=== PATIENT | female | born 1965 | race Caucasian/White ===

== ENCOUNTER → 2017-04-21 | Outpatient (CLI) | payer BC | LOC: MAMMO 14:12 | DX: Z12.31 Encounter for screening mammogram for malignant neoplasm of breast (principal) | CPT/HCPCS: G0202 ==

== ENCOUNTER → 2018-04-07 | Outpatient (CLI) | payer BC | LOC: RAD 07:23 | DX: M79.645 Pain in left finger(s) (principal); M79.642 Pain in left hand ==

== ENCOUNTER → 2018-04-19 | Outpatient (CLI) | payer BC | LOC: RAD 08:57 | DX: M17.0 Bilateral primary osteoarthritis of knee (principal) ==

== ENCOUNTER → 2018-04-27 | Outpatient (CLI) | payer BC | LOC: MAMMO 13:15 | DX: Z12.31 Encounter for screening mammogram for malignant neoplasm of breast (principal) ==

== ENCOUNTER 2018-10-30 17:55 | Emergency (ER) | payer BC ==
[~2018-10-30] VITALS: Ht 167.6 cm; Wt 89.5 kg
[2018-10-30 18:56] LABS: BASO # 0.1 (0.02-0.10); EOS # 0.3 (0.04-0.40); EOS % 2.7 % (1.0-5.0); HEMATOCRIT 43.1 % (37.0-47.0); HEMOGLOBIN 14.9 g/dL (12.5-16.0); LYMPH# 2.1 (1.50-4.00); MEAN CELL VOLUME 86 fl (78-100); MEAN CORPUSCULAR HEMOGLOBIN 30 pg (27-31); MEAN CORPUSCULAR HGB CONC 35 g/dL (33-37); MONO # 0.7 (0.20-0.80); NEU # 7.8 (1.40-6.50); RED BLOOD COUNT 5.03 M/mm3 (4.10-5.30); RED CELL DISTRIBUTION WIDTH 13.2 % (11.5-14.5)
[2018-10-30 19:06] LABS: PLATELET COUNT 680 K/mm3 (130-400)
[2018-10-30 19:12] LABS: ALBUMIN 4.1 g/dL (3.5-5.0); POTASSIUM 4.5 mmol/L (3.6-5.0); TOTAL BILIRUBIN 0.7 mg/dL (0.2-1.3); TOTAL PROTEIN 6.8 g/dL (6.3-8.2)
[2018-10-30] MEDS ORDERED: MOBIC15 M1 PO (19:24)
[2018-10-30] MEDS ORDERED: PRILOSEC 20MG20 MG PO (19:25)
[2018-10-30] MEDS ORDERED: ZOLOFT 100MG100 MG PO (19:26)
[2018-10-30] MEDS ORDERED: AMITRIPTYLINE H50 M1 PO (19:26)
[2018-10-30] MEDS ORDERED: LOPRESSOR 225 MG/TAB PO (19:27)
[2018-10-30] MEDS ORDERED: HYDROCHLOROTH12.5 M1 PO (20:05)
[2018-10-30] MEDS ORDERED: NORCO 325 MG-51 TA1 PO (21:54)
[2018-10-30 22:23] VITALS: BP 128/79
== END 2018-10-30 22:23 | disposition home or self-care (01) ==
LOC: ED 17:55
PROVIDERS: Family Medicine
DX: M94.0 Chondrocostal junction syndrome [Tietze] (principal); I10 Essential (primary) hypertension; F41.9 Anxiety disorder, unspecified; D47.3 Essential (hemorrhagic) thrombocythemia; Z90.81 Acquired absence of spleen; K21.9 Gastro-esophageal reflux disease without esophagitis; Z79.899 Other long term (current) drug therapy

== ENCOUNTER → 2019-01-05 | Outpatient (CLI) | payer BC ==
[~2019-01-05] MED LIST: AMITRIPTYLINE H50 M1 PO; HYDROCHLOROTH12.5 M1 PO; LOPRESSOR 225 MG/TAB PO; MOBIC15 M1 PO; NORCO 325 MG-51 TA1 PO; PRILOSEC 20MG20 MG PO; ZOLOFT 100MG100 MG PO
== END ==
LOC: RAD 08:52
DX: M17.0 Bilateral primary osteoarthritis of knee (principal); M25.562 Pain in left knee; M25.561 Pain in right knee

== ENCOUNTER → 2019-04-19 | Outpatient (CLI) | payer BC | LOC: MAMMO 09:12 | DX: Z12.31 Encounter for screening mammogram for malignant neoplasm of breast (principal) ==

== ENCOUNTER → 2019-08-03 | Outpatient (CLI) | payer BC | LOC: RAD 09:00 | DX: M79.644 Pain in right finger(s) (principal); M79.645 Pain in left finger(s) ==

== ENCOUNTER → 2019-11-16 | Outpatient (CLI) | payer BC | LOC: RAD 09:00 | DX: M25.531 Pain in right wrist (principal) ==

== ENCOUNTER 2020-05-24 13:00 | Outpatient (RCR) | payer BC | END 2020-05-24 13:30 | disposition home or self-care (01) | LOC: OT 13:00 | DX: M19.041 Primary osteoarthritis, right hand (principal); M19.042 Primary osteoarthritis, left hand ==

== ENCOUNTER → 2020-06-06 | Outpatient (CLI) | payer BC | LOC: MAMMO 13:00 | DX: Z12.31 Encounter for screening mammogram for malignant neoplasm of breast (principal) ==

== ENCOUNTER 2020-09-15 08:36 | Emergency (ER) | payer BC ==
[~2020-09-15] VITALS: Wt 110.0 kg
[~2020-09-15 08:36] MED LIST changes: +FENOFIBRATE MI134 MG PO; +GABAPENTIN400 M2 PO; +METOPROLOL SUCC50 M1 PO
[2020-09-15] MEDS ORDERED: ASPIRIN E.C. 8181 MG (08:57)
[2020-09-15] MEDS ORDERED: XARELTO20 MG PO (08:57)
[2020-09-15] MEDS ORDERED: HYGROTON 2525 MG/TAB PO (08:57)
[2020-09-15] MEDS ORDERED: TOPROL XL 50MG50 MG PO (08:58)
[2020-09-15 09:42] LABS: HEMATOCRIT 44.7 % (37.0-47.0); HEMOGLOBIN 14.9 g/dL (12.5-16.0); MEAN CELL VOLUME 84 fl (78-100); MEAN CORPUSCULAR HEMOGLOBIN 28 pg (27-31); MEAN CORPUSCULAR HGB CONC 33 g/dL (33-37); MEAN PLATELET VOLUME 9.9 fl (7.4-10.4); RED BLOOD COUNT 5.33 M/mm3 (4.10-5.30); RED CELL DISTRIBUTION WIDTH 13.4 % (11.5-14.5); WHITE BLOOD COUNT 9.4 K/mm3 (4.8-10.8)
[2020-09-15 09:50] LABS: ALBUMIN 4.3 g/dL (3.5-5.0)
[2020-09-15 09:51] LABS: POTASSIUM 4.2 mmol/L (3.5-5.1)
[2020-09-15 09:53] LABS: TOTAL PROTEIN 7.5 g/dL (6.4-8.3)
[2020-09-15 09:55] LABS: TOTAL BILIRUBIN 0.5 mg/dL (0.2-1.2)
[2020-09-15 10:03] LABS: PLATELET COUNT 961 K/mm3 (130-400)
[2020-09-15 13:59] VITALS: BP 98/82
== END 2020-09-15 13:03 | disposition short-term general hospital (02) ==
LOC: ED 08:36
PROVIDERS: Family Medicine
DX: I48.20 Chronic atrial fibrillation, unspecified (principal); K21.9 Gastro-esophageal reflux disease without esophagitis; I10 Essential (primary) hypertension; F32.9 Major depressive disorder, single episode, unspecified; F41.9 Anxiety disorder, unspecified; Z20.828 Contact with and (suspected) exposure to other viral communicable diseases; Z90.49 Acquired absence of other specified parts of digestive tract; Z90.89 Acquired absence of other organs; Z88.1 Allergy status to other antibiotic agents; Z88.6 Allergy status to analgesic agent; Z79.01 Long term (current) use of anticoagulants; Z79.82 Long term (current) use of aspirin
CPT/HCPCS: J7030

== ENCOUNTER 2020-10-20 15:24 | Emergency (ER) | payer BC ==
[~2020-10-20] VITALS: Ht 167.6 cm; Wt 109.1 kg
[~2020-10-20 15:24] MED LIST changes: +ASPIRIN E.C. 8181 MG; +HYGROTON 2525 MG/TAB PO; +TOPROL XL 50MG50 MG PO; +XARELTO20 MG PO
[2020-10-20] MEDS ORDERED: AMIODARONE200 MG PO (16:06)
[2020-10-20] MEDS ORDERED: AMITRIPTYLINE H10 M2 PO (16:06)
[2020-10-20] MEDS ORDERED: TAZTIA XT180 MG PO (16:07)
[2020-10-20 16:08] LABS: BASO # 0.1 (0.02-0.10); EOS # 0.3 (0.04-0.40); EOS % 2.7 % (1.0-5.0); HEMATOCRIT 43.3 % (37.0-47.0); HEMOGLOBIN 14.8 g/dL (12.5-16.0); LYMPH# 3.1 (1.50-4.00); MEAN CELL VOLUME 83 fl (78-100); MEAN CORPUSCULAR HEMOGLOBIN 28 pg (27-31); MEAN CORPUSCULAR HGB CONC 34 g/dL (33-37); MEAN PLATELET VOLUME 9.2 fl (7.4-10.4); MONO # 0.8 (0.20-0.80); NEU # 6.3 (1.40-6.50); RED BLOOD COUNT 5.25 M/mm3 (4.10-5.30); RED CELL DISTRIBUTION WIDTH 13.6 % (11.5-14.5); WHITE BLOOD COUNT 10.6 K/mm3 (4.8-10.8)
[2020-10-20 16:13] LABS: PLATELET COUNT 861 K/mm3 (130-400)
[2020-10-20 16:24] LABS: ALBUMIN 4.4 g/dL (3.5-5.0)
[2020-10-20 16:25] LABS: POTASSIUM 3.4 mmol/L (3.5-5.1)
[2020-10-20 16:26] LABS: CALCIUM 9.3 mg/dL (8.3-10.5)
[2020-10-20 16:27] LABS: TOTAL PROTEIN 7.3 g/dL (6.4-8.3)
[2020-10-20 16:29] LABS: TOTAL BILIRUBIN 0.6 mg/dL (0.2-1.2)
[2020-10-20 18:15] LABS: URINE APPEARANCE CLEAR; URINE COLOR YELLOW
[2020-10-20 18:16] LABS: PH-URINE 7.5 (5.0 - 8.0); URINE BILIRUBIN NEGATIVE (NEGATIVE); URINE BLOOD NEGATIVE (NEGATIVE); URINE GLUCOSE NEGATIVE (NEGATIVE); URINE KETONE NEGATIVE (NEGATIVE); URINE LEUKOCYTE ESTERASE NEGATIVE (NEGATIVE); URINE NITRATE NEGATIVE (NEGATIVE); URINE PROTEIN(semi-quant) TRACE mg/dL (NEGATIVE); URINE UROBILINOGEN NORMAL (NORMAL); URINE WBC 0-1 /hpf (0-3)
[2020-10-20 20:51] VITALS: BP 103/79
--- NOTE | 2020-10-22 12:20 | NUR ---
ER documentation faxed, per request, to Eul[facility] at [facility]. .
== END 2020-10-20 20:54 | disposition home or self-care (01) ==
LOC: ED 15:24
PROVIDERS: Family Medicine
DX: M94.0 Chondrocostal junction syndrome [Tietze] (principal); K21.9 Gastro-esophageal reflux disease without esophagitis; I48.91 Unspecified atrial fibrillation; Z79.01 Long term (current) use of anticoagulants; Z79.82 Long term (current) use of aspirin

== ENCOUNTER 2021-02-19 11:30 | Outpatient (RCR) | payer BC ==
[~2021-02-19 11:30] MED LIST changes: +AMIODARONE200 MG PO; +AMITRIPTYLINE H10 M2 PO; +TAZTIA XT180 MG PO
== END 2021-04-02 | disposition home or self-care (01) ==
LOC: PT
DX: M25.561 Pain in right knee (principal); Z96.651 Presence of right artificial knee joint

== ENCOUNTER → 2021-03-28 | Outpatient (CLI) | payer BC ==
[~2021-03-28] MED LIST changes: +NEURONTIN400 M1 PO; +POTASSIUM CHLO20 ME3 PO
== END ==
LOC: MAMMO 13:00
DX: N64.4 Mastodynia (principal)

== ENCOUNTER 2021-04-27 04:50 | Emergency (ER) | payer BC ==
[~2021-04-27 04:50] MED LIST changes: -NEURONTIN400 M1 PO; -POTASSIUM CHLO20 ME3 PO
[2021-04-27] MEDS ORDERED: GABAPENTIN400 M2 PO (05:01)
[2021-04-27] MEDS ORDERED: NEURONTIN400 M1 PO (05:02)
[2021-04-27 05:43] LABS: BASO # 0.12 (0.02-0.10); EOS # 0.91 (0.04-0.40); EOS % 6.9 % (1.0-5.0); HEMATOCRIT 43.8 % (37.0-47.0); HEMOGLOBIN 14.9 g/dL (12.5-16.0); MEAN CELL VOLUME 82 fl (78-100); MEAN CORPUSCULAR HEMOGLOBIN 28 pg (27-31); MEAN CORPUSCULAR HGB CONC 34 g/dL (33-37); MONO # 1.47 (0.20-0.80); NEU # 6.92 (1.40-6.50); RED BLOOD COUNT 5.34 M/mm3 (4.10-5.30); RED CELL DISTRIBUTION WIDTH 13.6 % (11.5-14.5); WHITE BLOOD COUNT 13.2 K/mm3 (4.8-10.8)
[2021-04-27 05:44] LABS: PLATELET COUNT 804 K/mm3 (130-400)
[2021-04-27 05:48] LABS: URINE APPEARANCE CLEAR; URINE BILIRUBIN NEGATIVE (NEGATIVE); URINE BLOOD 50 ery/uL (NEGATIVE); URINE COLOR YELLOW; URINE GLUCOSE NEGATIVE (NEGATIVE); URINE KETONE NEGATIVE (NEGATIVE); URINE LEUKOCYTE ESTERASE NEGATIVE (NEGATIVE); URINE NITRATE NEGATIVE (NEGATIVE); URINE PROTEIN(semi-quant) NEGATIVE (NEGATIVE); URINE UROBILINOGEN NORMAL (NORMAL)
[2021-04-27 05:49] LABS: ALBUMIN 4.2 g/dL (3.5-5.0); POTASSIUM 3.2 mmol/L (3.5-5.1); SODIUM 142 mmol/L (136-145)
[2021-04-27 05:50] LABS: CALCIUM 9.6 mg/dL (8.3-10.5)
[2021-04-27 05:51] LABS: GLUCOSE 115 mg/dL (65-105); TOTAL PROTEIN 7.7 g/dL (6.4-8.3)
[2021-04-27 05:52] LABS: CARBON DIOXIDE 26 mmol/L (22-29)
[2021-04-27 05:53] LABS: TOTAL BILIRUBIN 0.4 mg/dL (0.2-1.2)
[2021-04-27 05:57] LABS: AST-SGOT 17 U/L (5-34)
[2021-04-27 05:58] LABS: ALT/SGPT 16 U/L (0-55)
[2021-04-27 06:04] LABS: TROPONIN-I < 0.03 ng/mL (<0.030)
[2021-04-27] MEDS ORDERED: POTASSIUM CHLO20 ME3 PO (06:39)
[2021-04-27 08:10] VITALS: BP 113/69
== END 2021-04-27 07:42 | disposition home or self-care (01) ==
LOC: ED 04:50
PROVIDERS: Family Medicine
DX: I48.91 Unspecified atrial fibrillation (principal); I48.92 Unspecified atrial flutter; K21.9 Gastro-esophageal reflux disease without esophagitis; M94.0 Chondrocostal junction syndrome [Tietze]; I10 Essential (primary) hypertension; E87.6 Hypokalemia; D69.59 Other secondary thrombocytopenia; Z90.81 Acquired absence of spleen; Z79.01 Long term (current) use of anticoagulants; Z79.899 Other long term (current) drug therapy; Z88.6 Allergy status to analgesic agent

== ENCOUNTER 2021-05-05 00:20 | Emergency (ER) | payer BC ==
[~2021-05-05 00:20] MED LIST changes: +NEURONTIN400 M1 PO; +POTASSIUM CHLO20 ME3 PO
[2021-05-05 01:01] LABS: BASO # 0.07 (0.02-0.10); EOS # 0.01 (0.04-0.40); EOS % 0.1 % (1.0-5.0); HEMATOCRIT 32.9 % (37.0-47.0); MEAN CELL VOLUME 85 fl (78-100); MEAN CORPUSCULAR HEMOGLOBIN 28 pg (27-31); MEAN CORPUSCULAR HGB CONC 33 g/dL (33-37); MEAN PLATELET VOLUME 8.8 fl (7.4-10.4); MONO # 1.49 (0.20-0.80); NEU # 15.52 (1.40-6.50); RED BLOOD COUNT 3.87 M/mm3 (4.10-5.30); RED CELL DISTRIBUTION WIDTH 14.1 % (11.5-14.5); WHITE BLOOD COUNT 19.7 K/mm3 (4.8-10.8)
[2021-05-05 01:02] LABS: PLATELET COUNT 672 K/mm3 (130-400)
[2021-05-05 01:06] LABS: POTASSIUM 3.9 mmol/L (3.5-5.1)
[2021-05-05 01:08] LABS: CALCIUM 8.3 mg/dL (8.3-10.5)
[2021-05-05 02:47] LABS: PH-URINE 7.5 (5.0 - 8.0); URINE APPEARANCE CLEAR; URINE BILIRUBIN NEGATIVE (NEGATIVE); URINE BLOOD NEGATIVE (NEGATIVE); URINE COLOR YELLOW; URINE GLUCOSE NEGATIVE (NEGATIVE); URINE KETONE NEGATIVE (NEGATIVE); URINE LEUKOCYTE ESTERASE TRACE (NEGATIVE); URINE NITRATE NEGATIVE (NEGATIVE); URINE PROTEIN(semi-quant) 1+ mg/dL (NEGATIVE); URINE UROBILINOGEN 4 mg/dL (NORMAL)
[2021-05-05 02:48] LABS: URINE MUCUS PRESENT (NOT PRESENT)
[2021-05-05 07:28] LABS: HEMATOCRIT 31.8 % (37.0-47.0); HEMOGLOBIN 10.6 g/dL (12.5-16.0); MEAN PLATELET VOLUME 8.9 fl (7.4-10.4); RED BLOOD COUNT 3.68 M/mm3 (4.10-5.30); RED CELL DISTRIBUTION WIDTH 13.9 % (11.5-14.5); WHITE BLOOD COUNT 17.4 K/mm3 (4.8-10.8)
[2021-05-05 07:43] LABS: ALBUMIN 3.1 g/dL (3.5-5.0)
[2021-05-05 07:45] LABS: TOTAL PROTEIN 5.9 g/dL (6.4-8.3)
[2021-05-05 07:46] LABS: CALCIUM 8.3 mg/dL (8.3-10.5); CARBON DIOXIDE 33 mmol/L (22-29)
[2021-05-05 07:47] LABS: GLUCOSE 112 mg/dL (65-105)
[2021-05-05 07:51] LABS: AST-SGOT 23 U/L (5-34)
[2021-05-05 07:52] LABS: ALT/SGPT 29 U/L (0-55)
[2021-05-05 07:59] LABS: POTASSIUM 3.3 mmol/L (3.5-5.1); SODIUM 137 mmol/L (136-145)
[2021-05-05 08:04] LABS: TROPONIN-I < 0.03 ng/mL (<0.030)
[2021-05-05 10:00] VITALS: BP 108/67
== END 2021-05-05 10:28 | disposition short-term general hospital (02) ==
LOC: ED 00:20
PROVIDERS: Family Medicine
DX: J96.91 Respiratory failure, unspecified with hypoxia (principal); J81.1 Chronic pulmonary edema; I48.91 Unspecified atrial fibrillation; I11.0 Hypertensive heart disease with heart failure; Z79.01 Long term (current) use of anticoagulants; I50.9 Heart failure, unspecified; K21.9 Gastro-esophageal reflux disease without esophagitis; Z20.822 Contact with and (suspected) exposure to COVID-19; Z96.653 Presence of artificial knee joint, bilateral; Z88.6 Allergy status to analgesic agent; Z79.899 Other long term (current) drug therapy; Z79.82 Long term (current) use of aspirin
CPT/HCPCS: J1940; Q9967

== ENCOUNTER 2021-05-07 13:04 | Outpatient (RCR) | payer BC | END 2021-08-05 | disposition home or self-care (01) | LOC: PT | DX: M25.562 Pain in left knee (principal); Z96.652 Presence of left artificial knee joint ==

== ENCOUNTER → 2021-08-21 | Outpatient (CLI) | payer BC | LOC: MAMMO 09:54 | DX: Z13.6 Encounter for screening for cardiovascular disorders (principal) ==

== ENCOUNTER 2022-01-06 14:55 | Outpatient (RCR) | payer BC | END 2022-01-30 | disposition home or self-care (01) | LOC: PT | DX: M79.604 Pain in right leg (principal) ==

== ENCOUNTER → 2022-02-24 | Outpatient (CLI) | payer BC | LOC: RAD 09:02 | DX: M70.61 Trochanteric bursitis, right hip (principal); M67.853 Other specified disorders of tendon, right hip ==

== ENCOUNTER 2022-08-04 08:01 | Outpatient (RCR) | payer BC | END 2022-09-01 | disposition still patient (30) | LOC: PT | DX: R26.81 Unsteadiness on feet (principal) ==

== ENCOUNTER → 2022-08-21 | Outpatient (CLI) | payer BC | LOC: MAMMO 07-15 11:30 | DX: Z12.31 Encounter for screening mammogram for malignant neoplasm of breast (principal) ==

== ENCOUNTER 2022-09-02 13:10 | Outpatient (RCR) | payer BC | END 2022-10-01 | disposition home or self-care (01) | LOC: PT | DX: R26.81 Unsteadiness on feet (principal) ==

== ENCOUNTER 2022-10-02 09:38 | Outpatient (RCR) | payer BC | END 2022-10-14 09:20 | disposition home or self-care (01) | LOC: PT 09:38 | DX: R26.81 Unsteadiness on feet (principal) ==

== ENCOUNTER → 2023-08-25 | Outpatient (CLI) | payer BC | LOC: MAMMO 09:05 | DX: Z12.31 Encounter for screening mammogram for malignant neoplasm of breast (principal) ==

== ENCOUNTER → 2024-08-29 | Outpatient (CLI) | payer BC | LOC: MAMMO 13:06 | DX: Z12.31 Encounter for screening mammogram for malignant neoplasm of breast (principal) ==